=== PATIENT | female | born 1945 | race American Indian/Alaskan Native ===

== ENCOUNTER 2017-06-02 07:25 | Day surgery (SDC) | payer MEDICARE ==
[~2017-06-02 07:25] MED LIST: ANCEF/STERILE WATER 2 GM/20 ML 2 GM/20 ML SYRINGE IV NR
[2017-06-02] MEDS ORDERED: NACL 0.9% 1000 ML 1,000 ML IV SCH (08:00)
[2017-06-02] MEDS ORDERED: PEPCID PO NR ×2 (08:00→09:00)
--- NOTE | 2017-06-02 08:43 | Anesthesia Consultation ---
Anesthesia Consult and Med Hx Date of service: 06/02/17 - Airway Anesthetic Teeth Evaluation: Chipped (top right molar), Caps (loose left lower molar cap), Partials (upper) ROM Head & Neck: Adequate Mental/Hyoid Distance: Adequate Mallampati Class: Class II Intubation Access Assessment: Probably Good - Pulmonary Exam CTA: Yes - Cardiac Exam Cardiac Exam: RRR - Pre-Operative Health Status ASA Pre-Surgery Classification: ASA2 Proposed Anesthetic Plan: General - Pulmonary Hx Smoking: No Hx Asthma: No Hx Sleep Apnea: No (BRANDON PRE SCREEN LOW RISK) - Cardiovascular System Hx Hypertension: Yes (X 6 YRS) Hx Cardia Arrhythmia: Yes ("irregular") - Central Nervous System Hx Seizures: No CVA: No - Endocrine Hx End Stage Renal Disease: No Hx Liver Disease: No Hx Non-Insulin Dependent Diabetes: No Hx Hypothyroidism: No - Other Systems Hx Cancer: No
--- NOTE | 2017-06-02 08:43 | Anesthesia Day of Surgery ---
Anesthesia Day of Surgery - Day of Surgery Patient Examined: Yes Patient H&P Reviewed: Yes Patient is NPO: Yes
[2017-06-02] MEDS ORDERED: NACL BACTERIOSTATIC INFILTRATI ONE (08:50)
[2017-06-02] MEDS ORDERED: ANCEF/STERILE WATER 2 GM/20 ML 2 GM/20 ML SYRINGE IV NR (09:00)
[2017-06-02] MEDS ORDERED: XYLOCAINE MPF 2% ONE (09:12)
[2017-06-02] MEDS ORDERED: DIPRIVAN 10 MG/ML IV ONE (09:12)
[2017-06-02] MEDS ORDERED: DECADRON ONE (09:13)
[2017-06-02] MEDS ORDERED: WATER FOR IRRIG STERILE IR ONE (09:54)
[2017-06-02] MEDS ORDERED: DILAUDID IV PRN (10:00)
[2017-06-02] MEDS ORDERED: ZOFRAN IV PRN (10:00)
[2017-06-02] MEDS ORDERED: LASIX ONE (10:05)
--- NOTE | 2017-06-02 10:31 | Post Operative Note ---
Date of procedure: 06/02/17 Pre-op diagnosis: left upper ureteral stone Post-op diagnosis: same Findings: As above Procedure: Operative note Preoperative diagnosis impacted left upper ureteral stone Postoperative diagnosis the same with a very narrowed ureter Procedure cystoscopy left retrograde left ureteroscopy laser of stone left nephroscopy with reinsertion double-J stent stage procedure Surgeon Dr.Z Concepcion Dorantes. Findings This is a staged procedure for lady with previous severe pain infection and a very narrowed ureter. She has an upper ureteral stone about 6-7 mm Procedure Patient was brought to the operating room placed on the operating table. Following induction of anesthesia placed in lithotomy position prepped and review sterile fashion. Cystoscopy showed a moderate cystocele and the stent was withdrawn. A wire coiled up in the kidney through the stent. Rigid ureteroscopy showed some narrowing at the vessels but once we got to the mid ureter the ureter was narrowed so we placed a second wire with this ureteroscope. At this point the flexible ureteroscopy was carried out we saw the stone which is impacted and posterior wall of the left ureter. Laser was used at 8 W and the ureter and once we broke it into half. At that point stone stones moved up to the kidney. Nephroscopy fragmented all the fragments that we could see in the different calyces. We tried to get the double-J to coil in the renal pelvis but it was quite narrow. Tried this twice and then we left it in the upper pole. This was a 7 Vincentian 24 cm double-J. Patient procedure well no sniffing complications there was no significant bleeding and she was brought to recovery room in stable condition Anesthesia: ESTEBAN Surgeon: MONSE GARCIA Estimated blood loss: none Pathology: none Condition: stable Disposition: PACU
--- NOTE | 2017-06-02 10:32 | Discharge Summary ---
Short Stay Discharge Plan Activity: other (no straining) Weight Bearing Status: Full Weight Bearing Diet: low fat, low cholesterol Special Instructions: other (increase fluids) Durable Medical Equipment Needed Upon Discharge: other (double-J stent) Follow up with: PRIMARY CARE, [Primary Care Provider] - 7 Days MONSE GARCIA MD [Staff Physician] - 7 Days
--- NOTE | 2017-06-02 10:49 | Post Anesthesia Evaluation ---
- Post Anesthesia Evaluation Patient Participated: Yes Airway Patent: Yes Stable Respiratory Function: Yes Nausea/Vomiting: No Temp > 96.8F: Yes Pain Manageable: Yes Adequeate Hydration: Yes Anesthesia Complications: No Block Receding Appropriately: Not Applicable Patient on Ventilator: No
--- NOTE | 2017-06-02 14:47 | Fluoroscopy Report ---
Findings: Fluoroscopy was provided by radiology during left ureteral stent exchange and left ureteral stone removal by urology.
[2017-06-02 19:19] VITALS: BP 159/81
== END 2017-06-02 12:53 | disposition home or self-care (01) ==
LOC: OR 07:25
PROVIDERS: ATTEND Urology
DX: N20.1 Calculus of ureter (principal); N13.5 Crossing vessel and stricture of ureter without hydronephrosis; I10 Essential (primary) hypertension; Z90.710 Acquired absence of both cervix and uterus; Z98.890 Other specified postprocedural states; Z79.899 Other long term (current) drug therapy; Z88.8 Allergy status to other drugs, medicaments and biological substances; Z88.5 Allergy status to narcotic agent; Z82.49 Family history of ischemic heart disease and other diseases of the circulatory system; N81.10 Cystocele, unspecified
CPT/HCPCS: 52356; 74420; A4217; C1758; C1769; C2617; J0690; J1100; J1170; J1940; J2405; J2704; J7030; Q9967